=== PATIENT | female | born 1960 | race Caucasian/White ===

== ENCOUNTER → 2017-04-16 | Outpatient (CLI) | payer MEDICARE, OTHER ==
[~2017-04-16] MED LIST: OMNIPAQUE 350 MG/ML, 100ML BOTTLE ONE
== END | disposition home or self-care (01) ==
LOC: CFH 10:52
PROVIDERS: ATTEND Specialist
DX: C34.90 Malignant neoplasm of unspecified part of unspecified bronchus or lung (principal); Z98.890 Other specified postprocedural states
CPT/HCPCS: 71260; 74160; Q9967

== ENCOUNTER 2017-07-08 11:58 | Observation (INO) | payer MEDICARE, OTHER ==
[~2017-07-08] VITALS: Ht 167.6 cm; Wt 75.5 kg
[~2017-07-08 11:58] MED LIST changes: +BACITRACIN 50,000 UNIT ONE; +BUPIVACAINE/PF 0.25% ONE; +BUPIVACAINE/PF 0.5% ONE; +EPINEPHRINE 1 MG/ML, 1ML ONE; -OMNIPAQUE 350 MG/ML, 100ML BOTTLE ONE; +THROMBIN 5,000 UNIT VIAL TP ONE
[2017-07-08 13:11] VITALS: BP 139/78
[2017-07-08] MEDS ORDERED: TRIA1CAP3 PO (14:02)
[2017-07-08] MEDS ORDERED: ALBUTEROL INH (14:02)
[2017-07-08] MEDS ORDERED: ALBU18HF INH (14:02)
[2017-07-08] MEDS ORDERED: [UNRECOGNIZED DRUG - OTHER] (14:02)
[2017-07-08] MEDS ORDERED: BACL-19 PO (14:02)
[2017-07-08] MEDS ORDERED: TRIA1CAP PO (14:02)
[2017-07-08] MEDS ORDERED: HYDR-3307 PO (14:02)
[2017-07-08] MEDS ORDERED: PREMARIN (14:02)
[2017-07-08] MEDS ORDERED: ALLO100T30 PO (14:02)
[2017-07-08] MEDS ORDERED: BUDESONIDE (14:02)
[2017-07-08] MEDS ORDERED: XANAX (14:02)
[2017-07-08] MEDS ORDERED: ONDANSETRON 2MG/ML, 2ML IVPush PRN ×2 (15:00→18:00)
[2017-07-08] MEDS ORDERED: OXYcodone 5 MG/5 ML ORAL.SOL UDC PO PRN (15:00)
[2017-07-08] MEDS ORDERED: MEPERIDINE/PF 25MG/0.5ML IVPush PRN (15:00)
[2017-07-08] MEDS ORDERED: hydrALAzine 20 MG/ML, 1ML IV PRN (15:00)
[2017-07-08] MEDS ORDERED: MIDAZOLAM 1 MG/ML, 2ML IV PRN (15:00)
[2017-07-08] MEDS ORDERED: EPHEDRINE 50 MG/ML, 1ML IVPush PRN (15:00)
[2017-07-08] MEDS ORDERED: PROMETHAZINE 25 MG/ML, 1ML IV PRN (15:00)
[2017-07-08] MEDS ORDERED: HYDROcodone/APAP 7.5-325MG/15ML UDC PO PRN (15:00)
[2017-07-08] MEDS ORDERED: LABETALOL 5MG/ML, 20ML IV PRN (15:00)
[2017-07-08] MEDS ORDERED: ACETAMINOPHEN 325 MG TABLET PO PRN (15:00)
[2017-07-08] MEDS ORDERED: FENTANYL PF 100 MCG/2ML ONE ×4 (15:14→17:41)
[2017-07-08] MEDS ORDERED: MIDAZOLAM 1 MG/ML, 2ML ONE (15:14)
[2017-07-08] MEDS ORDERED: SCOPOLAMINE PATCH, 1.5MG PATCH.TD72 TD ONE ×2 (15:39→15:49)
[2017-07-08] MEDS ORDERED: DEXAMETHASONE 4 MG/ML, 1ML ONE (16:04)
[2017-07-08] MEDS ORDERED: ONDANSETRON 2MG/ML, 2ML ONE ×2 (16:04→17:41)
[2017-07-08] MEDS ORDERED: SUCCINYLCHOLINE 20 MG/ML, 10ML ONE (16:04)
[2017-07-08] MEDS ORDERED: CEFAZOLIN 1,000 MG ONE (16:04)
[2017-07-08] MEDS ORDERED: PROPOFOL 10 MG/ML, 20ML ONE (16:04)
[2017-07-08] MEDS ORDERED: PROPOFOL 10 MG/ML, 50ML ONE (16:04)
[2017-07-08] MEDS ORDERED: ACETAMINOPHEN 650 MG/20.3 ML UDC ONE (17:41)
[2017-07-08] MEDS ORDERED: OXYcodone 5 MG/5 ML ORAL.SOL UDC ONE (17:42)
[2017-07-08] MEDS: FENTANYL PF 100 MCG/2ML IV PRN ×3 (17:47→18:00)
[2017-07-08] MEDS ORDERED: PHARMACY MAY ADJ FOR RENAL FX MC PRN (18:00)
[2017-07-08] MEDS ORDERED: HYDROcodone/APAP 5/325 TABLET PO PRN (18:00)
[2017-07-08] MEDS ORDERED: PROMETHAZINE 25 MG/ML, 1ML IM PRN (18:00)
[2017-07-08] MEDS ORDERED: ALBUTEROL SULFATE 2.5 MG/3 ML NPPB PRN (18:00)
[2017-07-08] MEDS ORDERED: OXYcodone/APAP 5/325MG TABLET PO PRN (18:00)
[2017-07-08] MEDS ORDERED: SENNA/DOCUSATE TABLET PO PRN (18:00)
[2017-07-08] MEDS ORDERED: morphine SULFATE 10 MG/ML, 1ML IVPush PRN (18:00)
[2017-07-08] MEDS ORDERED: BISACODYL 10 MG SUPP PR PRN (18:00)
[2017-07-08] MEDS ORDERED: DIPHENHYDRAMINE 50 MG/ML, 1ML IVPush PRN (18:00)
[2017-07-08] MEDS ORDERED: HYDROmorphone 1 MG/ML, 1ML ONE (18:55)
[2017-07-08] MEDS: HYDROmorphone 1 MG/ML, 1ML IV PRN ×2 (18:57→19:10)
[2017-07-08 19:55] VITALS: BP 135/68
[2017-07-08] MEDS ORDERED: SODIUM CHLORIDE FLUSH 10ML SYR IVF SCH (21:00)
[2017-07-08] MEDS: BACLOFEN 10 MG TABLET PO SCH (21:19)
[2017-07-08] MEDS: METHOCARBAMOL 750 MG TABLET PO PRN (21:19)
[2017-07-08] MEDS: HYDROcodone/APAP 10/325 MG TABLET PO PRN (22:07)
[2017-07-09] VITALS: BP 102/40
[2017-07-09] MEDS: CEFAZOLIN PMX 1GM/50ML 50 ML IVPB SCH ×2 (01:15→08:31)
[2017-07-09] MEDS: HYDROcodone/APAP 10/325 MG TABLET PO PRN ×3 (02:09→09:41)
[2017-07-09 04:00] VITALS: BP 104/50
[2017-07-09] MEDS: METHOCARBAMOL 750 MG TABLET PO PRN (05:01)
[2017-07-09 07:29] VITALS: BP 90/49
[2017-07-09] MEDS: BACLOFEN 10 MG TABLET PO SCH (08:31)
[2017-07-09] MEDS ORDERED: TRIAMTERENE-HCTZ 37.5/25 MG TABLET PO SCH (09:00)
[2017-07-09] MEDS ORDERED: ALLOPURINOL 100 MG TABLET PO SCH (09:00)
[2017-07-09] MEDS ORDERED: [UNRECOGNIZED DRUG - OTHER] PO SCH (09:00)
[2017-07-09] MEDS ORDERED: HYDR-3307 PO (10:04)
[2017-07-09] MEDS ORDERED: METH750T87 PO (10:05)
[2017-07-09] MEDS ORDERED: CEPH-368 PO (10:05)
== END 2017-07-09 10:18 | disposition home or self-care (01) ==
LOC: OUT 11:58 → ORIP 17:34 → 4NOR 19:50 → DCLOUNGE 07-09 09:48
PROVIDERS: ADMIT Neurological Surgery; ATTEND Neurological Surgery
DX: M48.06 Spinal stenosis, lumbar region (principal); M54.16 Radiculopathy, lumbar region; G89.29 Other chronic pain; J44.9 Chronic obstructive pulmonary disease, unspecified; I10 Essential (primary) hypertension; F32.9 Major depressive disorder, single episode, unspecified; Z98.890 Other specified postprocedural states; Z90.49 Acquired absence of other specified parts of digestive tract
CPT/HCPCS: 63056; 72100; 96365; 96375; 96376; 97161; 97165; C1729; G0378; J0171; J0330; J0690; J1100; J1170; J2250; J2270; J2405; J2704; J3010; J3490

== ENCOUNTER → 2020-08-15 | Outpatient (CLI) | payer MEDICARE, OTHER ==
[~2020-08-15] MED LIST changes: +ALBU18HF INH; +ALBUTEROL INH; +ALLO100T30 PO; -BACITRACIN 50,000 UNIT ONE; +BACL-19 PO; +BUDESONIDE; -BUPIVACAINE/PF 0.25% ONE; -BUPIVACAINE/PF 0.5% ONE; +CEPH-368 PO; -EPINEPHRINE 1 MG/ML, 1ML ONE; +HYDR-3246 PO; +METH750T87 PO; +PREMARIN; -THROMBIN 5,000 UNIT VIAL TP ONE; +TRIA1CAP PO; +TRIA1CAP3 PO; +XANAX; +[UNRECOGNIZED DRUG - OTHER]
== END | disposition home or self-care (01) ==
LOC: CFH 08:23
PROVIDERS: ATTEND Internal Medicine
DX: C34.12 Malignant neoplasm of upper lobe, left bronchus or lung (principal); J98.4 Other disorders of lung
CPT/HCPCS: 71250